=== PATIENT | female | born 1965 | race Caucasian/White ===

== ENCOUNTER → 2023-09-04 12:55 | Outpatient (REF) | payer OTHER, SELFPAY | LOC: MRI 3T 12:55 | PROVIDERS: ATTENDING PHYSICIAN Obstetrics & Gynecology; FAMILY PHYSICIAN Internal Medicine | DX: R93.89 Abnormal findings on diagnostic imaging of other specified body structures (principal); D25.1 Intramural leiomyoma of uterus; D25.0 Submucous leiomyoma of uterus | CPT/HCPCS: 72197; A9575 ==

== ENCOUNTER 2023-11-28 11:29 | Observation (INO) | payer OTHER, SELFPAY ==
[2023-11-28 07:50] VITALS: BP 147/87; BP_SYST 81
[2023-11-28 07:53] LABS: % Eosinophils 3.9 % (0-6); % Immature Granulocytes 0.3 % (0-0.5); % Lymphocytes 33.8 % (20.5-51.1); Absolute Basophils 0.1 10^3/uL (0-0.2); Absolute Eosinophils 0.3 10^3/uL (0-0.7); Absolute Lymphocytes 2.4 10^3/uL (1.2-3.4); Absolute Monocytes 0.5 10^3/uL (0.1-0.6); Absolute Neutrophils 3.9 10^3/uL (1.4-6.5); Hematocrit 41.9 % (37.0-47.0); Hemoglobin 14.1 g/dL (12.0-16.0); Mean Corp Hgb Conc. 33.7 g/dL (33.0-37.0); Mean Corpuscular Hgb 29.6 pg (27.0-31.0); Mean Platelet Volume 10.2 fL (7.4-10.4); Nucleated Red Blood Cells % 0 %; Platelet Count 283 10^3/uL (130-400); Red Blood Cell Count 4.76 10^6/uL (4.20-5.40); Red Cell Dist. Width 12.9 % (11.5-14.5); White Blood Cell Count 7.2 10^3/uL (4.8-10.8)
[2023-11-28 08:00] LABS: HCG, Urine Qualitative Screen Negative
[2023-11-28 08:01] LABS: Blood Urea Nitrogen 14 mg/dl (7-17)
[2023-11-28 08:29] LABS: INR 1.01; PT 13.3 Sec (11.4-14.6)
[2023-11-28] MEDS: DECADRON 10 MG IV (08:35)
[2023-11-28] MEDS: BENADRYL 25 MG IV (08:36)
[2023-11-28] MEDS: ZOFRAN 8 MG PO (08:37)
[2023-11-28] MEDS: OXYCONTIN (CONTROLLED RELEASE) 10 MG PO (08:37)
[2023-11-28] MEDS: NSS 1000 IV ×2 (08:37→12:47)
[2023-11-28] MEDS: ANCEF 10 IV (08:44)
[2023-11-28 11:32] VITALS: BP 137/88
[2023-11-28 12:10] VITALS: BP 143/86
--- NOTE | 2023-11-28 12:16 | PTCARENOTE ---
direct admit from [facility] S/P uterine artery embolism. Pt aox3 no c/o pain. LCTA B/L on RA. +BS x4 abd soft, nontender. Small dressing CDI to right groin +PP B/L. skin otherwise intact, no edema
[2023-11-28 12:48] VITALS: BP 136/78
[2023-11-28 13:11] VITALS: BP 142/84
--- NOTE | 2023-11-28 15:04 | W.PN.UPDATE ---
Update Note
Progress Note Update
Patient reports minimal pain and no nausea. Tolerating regular diet.
Will remove tompkins and she should be ready for discharge.
Expectations after the procedure were reviewed with the patient, and she understands that there is always a physician workday consultant for any questions she may have.
--- NOTE | 2023-11-28 15:08 | PTCARENOTE ---
tompkins catheter removed 300ml out. encouraged to void
== END 2023-11-28 16:10 | disposition home or self-care (01) ==
LOC: 3 WEST ACU 11:29
PROVIDERS: ADMITTING PHYSICIAN Radiology Diagnostic Radiology; FAMILY PHYSICIAN Internal Medicine; REFERRING PHYSICIAN Obstetrics & Gynecology
DX: N80.03 Adenomyosis of the uterus (principal); D25.9 Leiomyoma of uterus, unspecified; N93.9 Abnormal uterine and vaginal bleeding, unspecified
CPT/HCPCS: 36247; 36415; 37243; 75736; 76937; 81025; 82565; 84520; 85025; 85610; 99152; 99153; C1769; G0378

== ENCOUNTER → 2025-03-26 15:01 | Outpatient (REF) | payer OTHER, SELFPAY | LOC: WDC 15:01 | PROVIDERS: ATTENDING PHYSICIAN Internal Medicine | DX: Z12.31 Encounter for screening mammogram for malignant neoplasm of breast (principal) | CPT/HCPCS: 77063; 77067 ==